=== PATIENT | female | born 1960 | race Caucasian/White ===

== ENCOUNTER 2018-06-26 08:01 | Day surgery (SDC) | payer OTHER | END 2018-06-26 22:50 | disposition home or self-care (01) | LOC: MOI US 08:01 → MOI MAM 08:30 → MOI US 08:45 | PROC: 0HBU3ZX Excision of Left Breast, Percutaneous Approach, Diagnostic (ICD-10-PCS; principal; 2018-06-26) | DX: D24.2 Benign neoplasm of left breast (principal) | CPT/HCPCS: 19083; 77065; 88305; A4648; G0279 ==

== ENCOUNTER 2019-01-20 18:52 | Emergency (ER) | payer OTHER | END 2019-01-20 19:30 | disposition left against medical advice (07) | LOC: ER 18:52 | DX: Z53.21 Procedure and treatment not carried out due to patient leaving prior to being seen by health care provider (principal) ==